=== PATIENT | female | born 1995 | race American Indian/Alaskan Native ===

== ENCOUNTER 2017-04-22 18:16 | Emergency (ER) | payer BC ==
[2017-04-22 18:24] VITALS: BP 119/82
[2017-04-22] MEDS ORDERED: TYLENOL #3 PO ONE (20:57)
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
[2017-04-22 22:49] LABS: HCG Qualitative,Urine Positive (Negative)
[2017-04-22 22:56] LABS: Bacteria,Urine 1+ /HPF (Negative); Bilirubin,Urine NEG (Negative); Blood,Urine NEG (Negative); Color,Urine Yellow (Yellow); Mucus,Urine 3+ /HPF
== END 2017-04-22 21:19 | disposition home or self-care (01) ==
LOC: ED 18:16
DX: M25.512 Pain in left shoulder (principal); V89.2XXA Person injured in unspecified motor-vehicle accident, traffic, initial encounter; Y93.89 Activity, other specified; Y92.89 Other specified places as the place of occurrence of the external cause; Y99.8 Other external cause status
CPT/HCPCS: 81001; 81025; 99283

== ENCOUNTER 2017-09-12 07:18 | Emergency (ER) | payer BC ==
[2017-09-12] MEDS ORDERED: FLEXERIL PO ONE (07:51)
[2017-09-12] MEDS ORDERED: NORCO 5/325 PO ONE (07:51)
[2017-09-12] MEDS ORDERED: TRIPLE ANTIBIOTIC TP ONE (07:51)
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
[2017-09-12 09:30] VITALS: BP 106/70
== END 2017-09-12 09:29 | disposition home or self-care (01) ==
LOC: ED 07:18
DX: S20.112A Abrasion of breast, left breast, initial encounter (principal); V43.52XA Car driver injured in collision with other type car in traffic accident, initial encounter; W22.10XA Striking against or struck by unspecified automobile airbag, initial encounter; Y93.89 Activity, other specified; Y92.89 Other specified places as the place of occurrence of the external cause; Y99.8 Other external cause status
CPT/HCPCS: 36415; 84703; 99284; A6250